=== PATIENT | male | born 1950 | race Caucasian/White ===

== ENCOUNTER 2017-02-06 11:48 | Day surgery (SDC) | payer OTHER ==
[~2017-02-06] VITALS: Ht 182.9 cm; Wt 101.0 kg
[~2017-02-06 11:48] MED LIST: ASPI325T32 PO; CeFAZolin Inj 2 GM in IV Premix 1 EACH IV ONE; HYDR25TA4 PO; Lactated Ringer's 1,000 ML IV SCH; NPR500T PO; RANI150C4 PO; SAWP1CAP PO; SILD100T PO; simvastatin PO; vicodin
[2017-02-06] MEDS ORDERED: Dexamethasone 4 mg/mL Inj ONE (11:49)
[2017-02-06] MEDS ORDERED: fentaNYL-PF 50 mCg/mL 2 mL Inj ONE (11:49)
[2017-02-06] MEDS ORDERED: Ondansetron 2 mg/mL 2 mL Inj ONE (11:49)
[2017-02-06] MEDS ORDERED: Propofol 10,000 mCg/mL 20 mL Inj ONE (11:49)
[2017-02-06] MEDS ORDERED: CeFAZolin Inj 2 gm / 50mL D5W IV ONE (12:00)
[2017-02-06 12:15] VITALS: BP 157/100; PULSE 77; RESP 16; O2SAT 97
[2017-02-06] MEDS ORDERED: Lactated Ringer's 1,000 ML IV ONE (12:15)
[2017-02-06] MEDS ORDERED: HYDROcodone-APAP 5-325 mg Tablet PO PRN (13:35)
[2017-02-06] MEDS ORDERED: Ketorolac 15 mg/mL Inj IVPUSH ONE (13:35)
--- NOTE | 2017-02-06 13:48 | PCM.HPANE ---
Patient Data Date of Service: Feb 06, 2017 Surgeon Admitting Provider: Attending Provider:Olaf Henson MD Primary Care Physician:Other,Physician Other Provider:Laura Medrano Anesthesia Reason for Visit Left Triceps Rupture Ht/WT & BMI Height (Feet): 6 Height (Inches): 0 Weight (Kilograms): 101 Body Mass Index 30.00 Allergies Coded Allergies: No Known Allergies (Unverified , 02/06/17) Past Anesthesia History Anesthesia History: Denies:: Anesthesia Reactions Diabetes History Hx Diabetes?: No MRSA MRSA: No Medications Blood Thinner: Aspirin Hypertension Medication: Yes Home Meds Incl Beta Flower: No Reported Medications Ranitidine 150 Mg [id number] Mg PO BID Ref 0 02/01/17 Sildenafil Citrate (Viagra)100 Mg [id number] Mg PO UD PRN erectile dysfunction Ref 0 02/01/17 [simvastatin] No Conflict Check40 Mg PO DAILY 02/01/17 Saw Gipsy Xtr/Zinc Picolin (Saw Gipsy Capsule)1 Each Capsule1 Each PO DAILY 02/01/17 Naproxen 500 Mg Bfu099 Mg PO BID PRN For Pain Ref 0 02/01/17 Hydrochlorothiazide 25 Mg Lfmnxb22 Mg PO DAILY 30 Days Ref 0 02/01/17 [vicodin] 5/500 No Conflict Check1 Tab Q4H PRN For Pain 02/01/17 Discontinued Reported Medications Aspirin 325 Mg Mcfvjo338 Mg PO DAILY #1 BOTTLE 02/01/17 Sildenafil Citrate-Expunged Drug, Do Not Murtaza (Viagra-Expunged Drug, Do Not Renew!)100 Mg Iodeop000 Mg PO PRN 09/04/10 Lansoprazole-Expunged Drug, Do Not Renew! 30 Mg Capsule.dr30 Mg PO AM 09/04/10 Atenolol-Expunged Drug, Do Not Renew! 25 Mg Wvlmxn72 Mg PO PM 09/04/10 History History of ENT Problems?: No Hx of Heart Problems?: Yes Cardiovascular History: Positive for:: Hypertension Denies:: AICD Heart Murmur Irregular Heartbeat Pacemaker Peripheral Vascular Hx of Respiratory Problem?: Yes Respiratory History: Positive for:: Asthma (In childhood) Pneumonia Denies:: Oxygen Administration Use of C-PAP Machine (has CPAP refuses to use) Hx Neurologic Problems?: No Neurological History: Denies:: CVA Headaches Multiple Sclerosis Parkinson's Disease Seizures Hx of GI Problems?: Yes Gastrointestinal History: Positive for:: Heartburn Denies:: Gall Bladder Disease Hepatitis Hiatal Hernia Liver Disease Hx of Problems?: No Genitourinary History: Denies:: Kidney Stones Urinary Tract Infection Male Hx: Denies:: Prostate Problems Skin History: Denies:: History Skin Disorders? Hx Musculoskeletal Problems?: Yes Musculoskeletal History: Positive for:: Musculoskeletal Trauma (left triceps rupture current admission problem, DOI 08/2016) Osteoarthritis Hx of Psycho/Social Problems?: No Hx Surgeries?: Yes (Shoulder repair, Hip surgery. left knee, tonsil) Hx Any Other Health Problems?: No Other History: Denies:: Cancer Endocrine Disease Thyroid Disease Hx Diabetes: No Hx Substance Use: Yes (Medical marijuana daily) Stop/Bang Treated for Sleep Apnea?: Yes Do You Have a CPAP Machine?: Yes S-Snoring: Do You Snore Loudly: Yes T-Tired: feel tired, fatigued: No O-Obsered: Observed not breath: Yes P-Blood Pressure: treated: Yes B- Body Mass Index > 35 kg/m2: No A- Age over 50: Yes N- Neck Large Circumference: No G- Gender Male: Yes TAMERA Total Score: 5 TAMERA Risk Assessment: High Risk, =/>3 Yes TAMERA Category 4 OutPt Procedure: Yes Risk Assessment Category Category 1A: Patient has history of documented sleep apnea, and HAS NOT received any narcotic, sedative or anesthesia administration during this stay. Category 1B: Patient has history of documented sleep apnea, and HAS received any narcotic , sedative or anesthesia administration during this stay Category 2: Patient has SUSPECTED Obstructive Sleep Apnea, and HAS received any narcotic , sedative or anesthesia administration during this stay. Category 3: Patient has SUSPECTED Obstructive Sleep Apnea and HAS NOT received narcotic, sedative or anesthesia administration during this stay. Category 4: Outpatient in Procedural Areas with known sleep apnea or who screen positive for High Risk via the STOP/BANG questionnaire. Exam Exam Vital Signs Vital Signs Date Time Temp Pulse Resp B/P Pulse Ox O2 Delivery O2 Flow Rate FiO2 02/06/17 12:15 36.7 77 16 157/100 97 Room Air General Appearance: Alert, Oriented X3, Cooperative, No Acute Distress HEENT/AIRWAY: MP 2, Neck Movement (full rom), Mouth Opening (normal), Other ( large oropeza) Lungs: Clear to Auscultation, Normal Air Movement Heart: Exam Unremarkable, Regular Rate/Rhythm, No Murmurs/Rubs/Gallops Meds/Labs/Diagnostics Admission Meds Current Medications Lactated Ringer's (Lr) 1,000 ml @ ud STK-MED ONCE IV Last administered on 02/06t 12:15; Start 02/06/17 at 12:15; Stop 02/06/17 at 12:30; Status DC Plan Impression Patient chart reviewed, patient interviewed and anesthestic plan with risks, benefits, and alternatives discussed, and informed consent obtained. NPO Status: 02/06 1000 ASA Physical Status: ASA2 Mod Systemic Disease Anesthetic Plan: GA, Regional Block Bene/Risks/Altern/Consents: Yes HP Complete Prior to Induction: Yes Sam Dale MD Feb 06, 2017 13:48
--- NOTE | 2017-02-06 13:52 | PCM.ORTHOP ---
Orthopedic Operative Report Date of Service: Feb 06, 2017 Pre Operative Diagnosis Left distal triceps rupture Post Operative Diagnosis Same Procedure Left distal triceps tendon repair Surgeon Surgeon: Olaf Henson MD Assistants:Jose Luis Wilson Indication for Procedure Left distal triceps rupture Findings Left distal triceps rupture, chronic, 5 cm retraction Details of Procedure INDICATIONS FOR SURGERY: The patient is Hector Valente who is a 67-year-old male who presents with triceps rupture, which occurred approximately 5 months ago. A clear explanation was given to the patient regarding the condition present, and the available conservative and surgical options. It was emphasized that the risks and benefits of surgery include but are not limited to infection, wound healing problems, damage to adjacent structures such as nerves, blood vessels and tendons, rat exterminator disability and pain, arthritis, hypersensitivity, deep vein thrombosis, pulmonary embolism, broken hardware, failure of surgery, need for further procedures at time of surgery or later, cast related problems, loss of limb or life. The patient was given an explanation and the patient voiced understanding of what to expect after the procedure or surgery, the limitations in activities of daily living, the likely duration for post operative recovery and the instructions that are to be followed. At the end the patient was invited to seek clarification or ask further questions but there were none. The patient voiced understanding of the entire consultation. Description of Procedure: The patient was taken to the operating room placed spine on the operating table. Time out was performed with both anesthesia and orthopaedics faculty present to confirm details of case to be performed. After time out performed, patient placed under general anesthesia and endotracheal tube secured into place. The patient was converted to the lateral decubitus position. Sedation anesthesia was achieved. All bony prominences were well padded. The left upper extremity was placed on pillows taped to the other hand rest. The affected upper extremity was then prepped and draped in a sterile fashion. The incision was made over the posterior elbow making a slight curve laterally at the olecranon. Sharp dissection was carried through the skin. Superficial blood vessels were cauterized with bipolar and we then elevated a medial and lateral skin flap down to the level of the triceps fascia. We identified the triceps fascia and our ruptured triceps tendon was immediately evident. At the level of the olecranon, we split (to bone) the investing fascial covering radially and ulnarly in order to allow something to close over the top of our triceps repair. We then freed up the triceps both superficially and deep in order to allow us to mobilize our triceps tendon. The end of the triceps tendon was debrided of frayed ends. A rongeur was used to debride the tendon insertion site on the olecranon followed by decortication with a curette. After this was completed, bone tunnels were made in an antegrade fashion. Taking a 2.5 mm drill bit, we made 2 bone tunnels, one heading slightly radial and one heading slightly ulnar in order to pass our bone tunnel stitches. We now used 2 #2 FiberWire and ran 2 Cool stitches up through the triceps tendon, first beginning with the radial side running this up through the tendon and adjacent muscle in a Krackow-type fashion and then running this back. We repeated this on the ulnar side of the tendon, now with 4 suture strands coming out of the tendon distally. One suture was placed through the radial tunnel with a Fine suture passer, 1 sutures were placed through the ulnar hole. 2 fiber loops were brought through to make a crossing configuration. Two bone bridges were created with the sutures. The elbow was now passively brought into maximal extension to take tension off of the triceps during our repair, and held in extension while holding the ulnar and radial sutures under tension. A 3.5 Swivel lock was used to hold tension and tapped and inserted into the bone. 0 Vicryl was used to close the lateral expansion over to the triceps tendon proper. Over the top of this, the fascial layer that had been taken off the olecranon as well as off of the area over the triceps proximally was closed. The wound was copiously irrigated. Prior to closure we determined that a tension -free repair was still present at roughly 40 degrees of elbow flexion and then closed the skin with a layered closure of 2-0 Vicryl inverted deep dermal stitches followed by 3-0 nylon horizontal mattress stitches. The wound was washed and dried. Dry sterile dressing was applied. The drapes were taken down and we then made a splint for our elbow. We placed a posterior slab with 4 inch rolls of plaster with the elbow held in roughly 30 degrees of flexion. The arm was well padded and the splint was placed posterior, and with the forearm in neutral. The patient was then awoken and converted to a supine position and transferred to the recovery room in good condition. Please keep dressing clean dry and intact. Do not remove dressing/splint until follow-up in clinic. Do not weight-bear on the affected extremity. You will follow up in clinic in 10-14 days for suture removal, and placement of new Steri -Strips. You will follow-up with me in clinic with no new x-rays at this time. Please keep the affected extremity elevated when possible. You may use ice and/or heat as needed for comfort (preferably ice during the first 48-72 hours) . Please feel free to call with any further questions, comments, and/or concerns. At 2 weeks post-operatively the patient will be placed in a hinged elbow brace and range of motion was permitted from 30-60 degrees passively. Four weeks post- operatively, the brace will be adjusted to allow for range of motion from 0-60 degrees. Six weeks following the procedure, the patient will be allowed to work on range of motion as tolerated with avoidance of resisted extension. You will start monitored physical therapy sessions at postop visit week 2. Please feel free to call with any further questions, comments, and/or concerns. Grafts, Implants: Implants-See Implant Record Complications There were no periprocedural complications identified. Condition Stable Anesthetic Administered: GA Catheters: None Output, Estimated Blood Loss: 20 Blood Admin during surgery: No Surgical Cast or Splint: Long Arm Splint, Other Surgical Specimen Removed: No Specimen sent to Pathology: No copies to: Olaf Henson MD, Christopher L MD Feb 06, 2017 13:52
[2017-02-06] MEDS ORDERED: Lactated Ringer's 1,000 ML IV SCH (14:41)
[2017-02-06] MEDS ORDERED: Lactated Ringer's 500 ML IV PRN (14:41)
[2017-02-06] MEDS ORDERED: Bacitracin 50,000 unit Inj IRRIGATION ONE (14:41)
[2017-02-06] MEDS ORDERED: Labetalol 5 mg/mL 4 mL Inj IV PRN (14:45)
[2017-02-06] MEDS ORDERED: hydrALAZINE 20 mg/mL Inj IVPUSH PRN (14:45)
[2017-02-06] MEDS ORDERED: MetoCLOpramide 5 mg/mL 2 mL Inj IVPUSH PRN (14:45)
[2017-02-06] MEDS ORDERED: EPHEDrine Sulfate 50 mg/mL Inj IVPUSH PRN (14:45)
[2017-02-06] MEDS ORDERED: Ondansetron 2 mg/mL 2 mL Inj IVPUSH PRN (14:45)
[2017-02-06] MEDS ORDERED: HYDROmorphone 1 mg/mL Inj IVPUSH PRN (14:45)
[2017-02-06] MEDS ORDERED: Phenylephrine 10,000 mCg/mL Inj IVPUSH PRN (14:45)
[2017-02-06] MEDS ORDERED: Atropine 0.4 mg/mL Inj IVPUSH PRN (14:45)
[2017-02-06] MEDS ORDERED: fentaNYL-PF 50 mCg/mL 2 mL Inj IVPUSH PRN (14:45)
[2017-02-06] MEDS ORDERED: Ropivacaine-PF 0.5% 30 mL Inj INFILTRATE ONE (15:29)
[2017-02-06 16:03] VITALS: BP 134/90; PULSE 72; RESP 12; O2SAT 97
--- NOTE | 2017-02-06 16:10 | PCM.ANEP1 ---
Post Anesthesia Phase 1 PACU Phase 1 Assessment Date of Service: Feb 06, 2017 Vital Signs Vital Signs Date Time Temp Pulse Resp B/P Pulse Ox O2 Delivery O2 Flow Rate FiO2 02/06/17 16:03 36.6 72 12 134/90 97 Room Air 02/06/17 12:15 36.7 77 16 157/100 97 Room Air Anesthetic Administered: GA Level of Alertness: Sleepy, easy to arouse TRAVIS's with Equal Strength: Yes Pain: No Nausea or Vomiting: No Oxygen Delivery: Room Air Lungs: Clear to Auscultation, Normal Air Movement Sam Dale MD Feb 06, 2017 16:10
[2017-02-06 16:16] VITALS: BP 144/90; PULSE 72; RESP 12; O2SAT 97
[2017-02-06 16:25] VITALS: BP 152/88; PULSE 73; RESP 14; O2SAT 94
[2017-02-06 17:05] VITALS: BP 148/95; PULSE 75; RESP 16; O2SAT 94
--- NOTE | 2017-02-06 18:49 | PCM.ANEP2 ---
Post Anesthesia Evaluation ASA/CMS Post Anesthesia Date of Service: Feb 06, 2017 VS in Patient's Normal Range?: Yes Resp Stable; Airway Patent?: Yes CV Function & Hydration Stable: Yes Mental Status Recovered?: Yes Pain control Satisfactory?: Yes N/V Control Satisfactory?: Yes Sam Dale MD Feb 06, 2017 18:49
== END 2017-02-06 23:59 | disposition home or self-care (01) ==
LOC: SAS 11:48
PROVIDERS: ATTEND Orthopaedic Surgery
DX: S46.312A Strain of muscle, fascia and tendon of triceps, left arm, initial encounter (principal); S40.022A Contusion of left upper arm, initial encounter; W18.30XA Fall on same level, unspecified, initial encounter; Y93.89 Activity, other specified; Y92.9 Unspecified place or not applicable; Y99.0 Civilian activity done for income or pay; I10 Essential (primary) hypertension; R00.0 Tachycardia, unspecified; K21.9 Gastro-esophageal reflux disease without esophagitis; G47.30 Sleep apnea, unspecified; Z79.82 Long term (current) use of aspirin
CPT/HCPCS: 24342; 76942; C1713; J0690; J1100; J2250; J2405; J2795; J3010; J7120